=== PATIENT | male | born 2005 | race Caucasian/White ===

== ENCOUNTER 2025-05-23 11:36 | Emergency (ER) | payer SELFPAY ==
[2025-05-23 11:57] VITALS: BP 114/78; PULSE 100; RESP 14; TEMP 36.8; O2SAT 98; BMI 27.2
--- NOTE | 2025-05-23 12:59 | W.ED.WOUNDLC ---
HPI - Wound/Laceration General: Chief Complaint: Wound/Laceration Stated Complaint: L side chest wants stitches removed Time Seen by Provider: 05/23/25 12:29 Source: patient Mode of arrival: ambulatory Limitations: no limitations History of Present Illness: Patient is a 20-year-old male who is requesting suture removal. Patient states approximately 2 weeks ago while in [place] he had an infected keloid scar that got removed by plastic surgery. He states he was scheduled to have the sutures removed today. He states he was only visiting family in [place] when he had the procedure. He states he cannot travel all the way back to [place] to have the sutures removed. He is originally from [place]. He states wound has healed and he does not have any concerns at this time. Onset (ago): week(s) Location: chest Place: home Patient tetanus UTD: Yes Associated symptoms: Reports no associated symptoms Related Data Allergies Allergy/AdvReac Type Severity Reaction Status Date / Time bee venom protein (honey bee) Allergy Unknown Verified 05/23/25 12:00 Review of Systems Skin/Breast: Reports: other (healing wound to chest with intact sutures) Physical Exam Const: COMMON NORMALS: no acute distress, average body habitus, no limitations, healthy appearing, alert and well nourished Chest: Chest images (male):  1. Keloid removed with intact sutures. Overall this is healed well with no evidence for infection. Neuro: SENSORIUM/ORIENTATION: Yes alert Course Vital Signs: Vital signs: Vital Signs Temperature 98.3 F 05/23/25 11:57 Pulse Rate 100 05/23/25 11:57 Respiratory Rate 14 05/23/25 11:57 Blood Pressure 114/78 05/23/25 11:57 Pulse Oximetry 98 05/23/25 11:57 Oxygen Delivery Me thod Room Air 05/23/25 11:57 MDM - Wound/Laceration Medical Decision Making Sutures were removed without difficulty. Wound care/infection precautions discussed. Return precautions given. Medical Records I reviewed the patient's medical records. No radiology studies performed this visit Discharge Plan Discharge Patient Disposition: Home Clinical Impression: Encounter for removal of sutures Condition: Stable Discharge Orders: Discharge ED (Routine); Ordered 05/23/25 Ordered By: Ana Lilia Logan Patient Instructions: Stitches Removal (ED), Patient Portal & Louise Instructions Print Language: French Coding Level of Care Code ED Engineering Administrator for Lucian Pierre
== END 2025-05-23 13:15 | disposition home or self-care (01) ==
PROVIDERS: Emergency Provider Physician Assistant
DX: Z48.02 Encounter for removal of sutures (principal)
CPT/HCPCS: 99281